=== PATIENT | female | born 1990 | race Caucasian/White ===

== ENCOUNTER 2017-07-08 12:03 | Emergency (ER) | payer OTHER ==
[~2017-07-08] VITALS: Ht 157.5 cm; Wt 71.7 kg
[2017-07-08 15:00] VITALS: BP 153/105
== END 2017-07-08 15:01 | disposition home or self-care (01) ==
LOC: EME 12:03
DX: R20.2 Paresthesia of skin (principal); I10 Essential (primary) hypertension; M79.89 Other specified soft tissue disorders; M79.604 Pain in right leg; M79.605 Pain in left leg
CPT/HCPCS: 93970; 99281; 99282